=== PATIENT | male | born 2000 | race Caucasian/White ===

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

== ENCOUNTER 2025-10-12 16:37 | Outpatient (REF) | payer BC, SELFPAY ==
[2025-10-12 21:14] LABS: Abs Immature Grans 0.02 10^3/uL (0.0-0.06); HCT 41.5 % (40.0-50.0); HGB 14.5 g/dL (13.5-17.5); Immature Grans % 0.2 %; MCH 31.7 pg (27.0-33.0); MCHC 34.9 % (32.0-36.0); MCV 91 fL (80-95); MPV 11.3 fL (8.0-11.0); Platelet Count 222 10^3/uL (130-400); RBC 4.57 10^6/uL (4.36-5.78); RDW 12.1 % (11.8-14.1); RDW-SD 39.9 fL; WBC 8.83 10^3/uL (4.4-10.8)
[2025-10-12 21:40] LABS: Vitamin D 25 Total 44 ng/mL (30-100)
== END 2025-10-12 16:38 | disposition home or self-care (01) ==
LOC: NCHCN 16:37
PROVIDERS: PCP Nurse Practitioner Family; Visit Provider Family Medicine
DX: R53.83 Other fatigue (principal)
CPT/HCPCS: 82306; 85025